=== PATIENT | female | born 1985 | race Caucasian/White ===

== ENCOUNTER 2018-07-20 07:18 | Emergency (ER) | payer OTHER ==
[~2018-07-20] VITALS: Ht 154.9 cm; Wt 45.4 kg
[~2018-07-20 07:18] MED LIST: ASPI325EC; ASPIRIN; BIRTH CONTROL; CHLO25 PO; IBUP600 PO; Naprosyn500 MG PO; OLAN5 PO; PENVK500 PO; Prenatabs Rx T1 EACH PO; TRAZ100 PO; Zofran4 MG PO; [UNRECOGNIZED DRUG - OTHER]
[2018-07-20] MEDS ORDERED: METH5 PO (07:37)
[2018-07-20 08:18] LABS: BASOPHILS ABSOLUTE AUTO 0.02 K/mm3 (0.00-0.23); BASOPHILS PERCENT AUTO 0 % (0-2); EOSINOPHILS ABSOLUTE AUTO 0.21 K/mm3 (0.00-0.68); EOSINOPHILS PERCENT AUTO 2 % (0-6); Hematocrit 40.2 % (33.0-51.0); Hemoglobin 13.1 g/dL (11.5-16.0); IMMATURE GRAN ABSOLUTE AUTO 0.03 K/mm3 (0.00-0.10); IMMATURE GRAN PERCENT AUTO 0 % (0-1); LYMPHOCYTES ABSOLUTE AUTO 1.02 K/mm3 (0.84-5.20); LYMPHOCYTES PERCENT AUTO 11 % (21-46); MONOCYTES ABSOLUTE AUTO 0.73 K/mm3 (0.16-1.47); MONOCYTES PERCENT AUTO 8 % (4-13); Mean Corpuscular HGB Conc 32.6 g/dL (31.5-36.5); Mean Corpuscular Volume 92 fL (80-100); Mean Platelet Volume 11.7 fL (9.1-12.4); NEUTROPHILS PERCENT AUTO 79 % (41-73); Platelet Count 218 K/mm3 (150-400); RDW Standard Deviation 44.3 fL (35.1-46.3); Red Blood Cell Count 4.36 M/mm3 (3.80-5.20); White Blood Cell Count 9.71 K/mm3 (4.00-11.30)
[2018-07-20 08:43] LABS: Alanine Aminotransfer (ALT/SGP 17 U/L (12-78); Albumin, Blood 3.6 g/dL (3.4-5.0); Albumin/Globulin Ratio 1.1 (0.8-1.8); Alk Phos 71 U/L (50-136); Anion Gap 8 mmol/L (6-16); Aspartate Aminotrans (AST/SGOT 19 U/L (12-37); Bilirubin, Total 0.2 mg/dL (0.1-1.0); Blood Urea Nitrogen 7 mg/dL (8-24); Bun/Creatinine Ratio 9.7 (12.0-20.0); CO2, Blood 26 mmol/L (21-32); Calcium, Blood 8.7 mg/dL (8.5-10.1); Chloride, Blood 107 mmol/L (98-108); Creatinine, Blood 0.72 mg/dL (0.40-1.00); Globulin, Blood 3.2 g/dL (2.2-4.0); Glomerular Filtration Rate >60 (60-); Glucose, Blood 87 mg/dL (70-99); Magnesium, Blood 2.2 mg/dL (1.6-2.4); Potassium, Blood 4.3 mmol/L (3.5-5.5); Sodium, Blood 141 mmol/L (136-145); Total Protein, Blood 6.8 g/dL (6.4-8.2)
[2018-07-20 09:43] LABS: Source, Urine Clean Catch
[2018-07-20 10:22] LABS: Appearance, Urine Clear (Clear); Bilirubin, Urine Neg (Neg); Blood, Urine Neg (Neg); Color, Urine Yellow (P-Yellow); Glucose Qualitative, Urine Neg (Neg); Ketones, Urine Neg (Neg); Leukocyte Esterase, Urine Neg (Neg); Nitrite, Urine Neg (Neg); Protein, Urine Neg (Neg); Urobilinogen, Urine NORM (Normal); pH, Urine 6.5 (5.0-8.0)
== END 2018-07-20 11:41 | disposition home or self-care (01) ==
LOC: ER 07:18
PROVIDERS: Physician Assistant
DX: R56.9 Unspecified convulsions (principal); F31.9 Bipolar disorder, unspecified; F20.9 Schizophrenia, unspecified; F41.9 Anxiety disorder, unspecified; F17.210 Nicotine dependence, cigarettes, uncomplicated; Z79.899 Other long term (current) drug therapy
CPT/HCPCS: 36415; 70450; 80053; 81003; 83735; 84703; 85025; 93005; 93010; 99284-25; J7120

== ENCOUNTER 2018-10-11 09:01 | Emergency (ER) | payer OTHER ==
[~2018-10-11] VITALS: Ht 154.9 cm; Wt 49.9 kg
[~2018-10-11 09:01] MED LIST changes: +METH5 PO
== END 2018-10-11 09:46 | disposition home or self-care (01) ==
LOC: ER 09:01
DX: R56.9 Unspecified convulsions (principal); I10 Essential (primary) hypertension; F17.210 Nicotine dependence, cigarettes, uncomplicated; Z79.891 Long term (current) use of opiate analgesic
CPT/HCPCS: 99284

== ENCOUNTER → 2018-12-18 | Outpatient (CLI) | payer OTHER ==
[2018-12-20 15:07] LABS: HPV 16 Negative (Negative); HPV 18 Negative (Negative); HPV OTHER HR TYPES Negative (Negative)
== END ==
LOC: LAB SHORT 15:00 → LAB 15:00
PROVIDERS: Registered Nurse Community Health
DX: Z01.419 Encounter for gynecological examination (general) (routine) without abnormal findings (principal); Z12.4 Encounter for screening for malignant neoplasm of cervix
CPT/HCPCS: 87624; G0123

== ENCOUNTER 2020-08-26 00:01 | Emergency (ER) | payer OTHER | END 2020-08-26 01:35 | disposition left against medical advice (07) | LOC: ER 00:01 | DX: T63.301A Toxic effect of unspecified spider venom, accidental (unintentional), initial encounter (principal); Z53.21 Procedure and treatment not carried out due to patient leaving prior to being seen by health care provider ==

== ENCOUNTER → 2020-11-12 | Outpatient (CLI) | payer OTHER | LOC: LAB SHORT 13:58 | DX: N91.2 Amenorrhea, unspecified (principal) | CPT/HCPCS: 84702 ==

== ENCOUNTER → 2020-11-20 | Outpatient (CLI) | payer OTHER | LOC: LAB 11:30 → LAB SHORT 11:30 | DX: O20.0 Threatened abortion (principal) | CPT/HCPCS: 84702 ==

== ENCOUNTER 2021-04-25 13:47 | Emergency (ER) | payer OTHER ==
[~2021-04-25] VITALS: Ht 154.9 cm; Wt 49.9 kg
== END 2021-04-25 16:45 | disposition home or self-care (01) ==
LOC: ER 13:47
DX: S20.212A Contusion of left front wall of thorax, initial encounter (principal); M25.522 Pain in left elbow; I10 Essential (primary) hypertension; F17.200 Nicotine dependence, unspecified, uncomplicated; Y04.2XXA Assault by strike against or bumped into by another person, initial encounter
CPT/HCPCS: 71101; 73080; 81025; 99284-25

== ENCOUNTER → 2021-07-22 | Outpatient (CLI) | payer OTHER ==
[2021-07-24 01:10] LABS: CHLAMYDIA TRACHOMATIS, NAA Negative (Negative)
== END ==
LOC: LAB 15:30 → LAB SHORT 15:30
PROVIDERS: Registered Nurse Community Health
DX: Z34.91 Encounter for supervision of normal pregnancy, unspecified, first trimester (principal)
CPT/HCPCS: 87491; 87591

== ENCOUNTER → 2022-01-12 | Outpatient (CLI) | payer OTHER | END | disposition home or self-care (01) | LOC: LAB SHORT 15:25 | DX: Z34.91 Encounter for supervision of normal pregnancy, unspecified, first trimester (principal) | CPT/HCPCS: 87081; 87150 ==

== ENCOUNTER 2022-12-03 16:36 | Emergency (ER) | payer OTHER ==
[~2022-12-03] VITALS: Ht 154.9 cm; Wt 49.9 kg
[~2022-12-03 16:36] MED LIST changes: -AMOX-CLAV 875-1 EAC1 PO; -ONDA4 PO
[2022-12-03] MEDS ORDERED: AMOX-CLAV 875-1 EAC1 PO (20:11)
[2022-12-03] MEDS ORDERED: ONDA4 PO (20:11)
[2022-12-03 20:27] VITALS: BP 116/80
== END 2022-12-03 20:23 | disposition home or self-care (01) ==
LOC: ER 16:36
DX: K52.9 Noninfective gastroenteritis and colitis, unspecified (principal); K04.7 Periapical abscess without sinus; Z79.899 Other long term (current) drug therapy; I10 Essential (primary) hypertension; F17.210 Nicotine dependence, cigarettes, uncomplicated
CPT/HCPCS: 41800; 74177; 85025; 96374-59; 96375-59; 99284-25; A9270; J2270; J2405; J7030; Q9967

== ENCOUNTER → 2022-12-03 | Outpatient (CLI) | payer OTHER ==
[~2022-12-03] MED LIST changes: +AMOX-CLAV 875-1 EAC1 PO; +IBUP800 PO; +Keppra750 MG PO; +ONDA4 PO; +OSEL75CA PO
[2022-12-03 16:02] LABS: BASOPHILS ABSOLUTE AUTO 0.05 K/mm3 (0.00-0.23); BASOPHILS PERCENT AUTO 0 % (0-2); EOSINOPHILS ABSOLUTE AUTO 0.15 K/mm3 (0.00-0.68); EOSINOPHILS PERCENT AUTO 1 % (0-6); Hematocrit 42.8 % (33.0-51.0); Hemoglobin 14.6 g/dL (11.5-16.0); IMMATURE GRAN ABSOLUTE AUTO 0.04 K/mm3 (0.00-0.10); IMMATURE GRAN PERCENT AUTO 0 % (0-1); LYMPHOCYTES PERCENT AUTO 16 % (21-46); MONOCYTES ABSOLUTE AUTO 0.85 K/mm3 (0.16-1.47); MONOCYTES PERCENT AUTO 7 % (4-13); Mean Corpuscular HGB 32.4 pg (26.0-34.0); Mean Corpuscular HGB Conc 34.1 g/dL (31.5-36.5); Mean Corpuscular Volume 95 fL (80-100); NEUTROPHILS ABSOLUTE AUTO 9.85 K/mm3 (1.96-9.15); NEUTROPHILS PERCENT AUTO 76 % (41-73); Platelet Count 321 K/mm3 (150-400); RDW Coefficient Variation 12.6 % (11.7-14.2); RDW Standard Deviation 44.1 fL (35.1-46.3); White Blood Cell Count 13.04 K/mm3 (4.00-11.30)
== END ==
LOC: LAB SHORT 15:57 → LAB 15:57
PROVIDERS: Physician Assistant
DX: R10.9 Unspecified abdominal pain (principal)
CPT/HCPCS: 85025

== ENCOUNTER → 2023-01-31 | Outpatient (CLI) | payer OTHER ==
[~2023-01-31] MED LIST changes: +AMOX-CLAV 875-1 EAC1 PO; +ONDA4 PO
[2023-02-03 18:10] LABS: APTIMA MEDIA TYPE Urine; C. TRACHOMATIS BY TMA Negative (Negative); N. GONORRHOEAE BY TMA Negative (Negative); SPECIMEN SOURCE Urine
== END ==
LOC: LAB 17:40 → LAB SHORT 17:40
PROVIDERS: Registered Nurse Community Health
DX: Z32.01 Encounter for pregnancy test, result positive (principal)
CPT/HCPCS: 87491; 87591

== ENCOUNTER → 2023-03-02 | Outpatient (CLI) | payer OTHER ==
[2023-03-04 14:06] LABS: APTIMA MEDIA TYPE Urine; C. TRACHOMATIS BY TMA Negative (Negative); N. GONORRHOEAE BY TMA Negative (Negative); SPECIMEN SOURCE Urine
== END ==
LOC: LAB SHORT 08:45 → LAB 08:45
PROVIDERS: Registered Nurse Community Health
DX: Z34.91 Encounter for supervision of normal pregnancy, unspecified, first trimester (principal)
CPT/HCPCS: 87491; 87591

== ENCOUNTER → 2023-08-21 | Outpatient (CLI) | payer OTHER | LOC: LAB SHORT 17:36 → LAB 17:36 | DX: Z34.93 Encounter for supervision of normal pregnancy, unspecified, third trimester (principal) | CPT/HCPCS: 87081; 87150 ==